=== PATIENT | male | born 1955 | race American Indian/Alaskan Native ===

== ENCOUNTER 2016-04-23 09:20 | Day surgery (SDC) | payer MEDICAID ==
[2016-04-23] MEDS ORDERED: NACL 0.9% 1000 ML 1,000 ML IV SCH (11:00)
[2016-04-23] MEDS ORDERED: DIPRIVAN 10 MG/ML IV ONE ×2 (11:14)
[2016-04-23] MEDS ORDERED: XYLOCAINE MPF 2% ONE (11:22)
--- NOTE | 2016-04-23 11:25 | Operative Report ---
Operative Report Operative Report: Operative Report: Date of procedure: 04/23/2016 Procedure: Esophagogastroduodenoscopy with multiple mucosal biopsies Attending physician: Jaspreet Boggs MD Internet Site Designer: Jaspreet Boggs MD Indication: Patient is a 61-year-old male who presented with a history of epigastric pain indigestion and chest pain. An upper endoscopy is done to assess patient regarding cause of her symptoms so that treatment may be directed based on the findings. Consent: Informed consent was obtained after advising the patient and family regarding nature of this procedure, its indications, potential benefits as well as possible complications including but not limited to bleeding perforation and adverse reaction to medication, infection as well as other cardiopulmonary complications. An informed written and verbal consent was then obtained after due opportunity was provided for questions and answers. Monitoring: Patient was monitored continuously with pulse oximetry and electrocardiographic recordings as well as blood pressure recordings. Vital signs remained stable throughout this procedure with no untoward events. Preoperative assessment: Patient was assessed immediately prior to this procedure for capacity to tolerate monitored anesthesia care and moderate sedation as well as general anesthesia. Patient's ASA classification is 2, Mallampati class is 2, Hyomental distance is 3. Instrument: [employer] video endoscope Medications: Propofol given intravenously in divided doses. For details please refer to anesthesia records. Description of procedure: Patient was placed in the left lateral decubitus position after achieving sedation, the endoscope was introduced into the esophagus under direct vision. It was then advanced beyond the esophagus into the stomach and then beyond the stomach into the duodenum and to the second portion of the duodenum. It was subsequently withdrawn with careful inspection of all mucosal surfaces with the following findings. Findings: Patient had mild erosive esophagitis involving the distal esophagus with linear erosions surrounding erythema and mucosal edema.. There was a 2-3 cm sliding hiatal hernia seen on entry into the stomach. There was erythema and erosions in the gastric antrum. Pyloric channel was patulous. Biopsies of the antrum were obtained for histopathology. The duodenum was normal to second portion except for mild diverticulosis involving the second portion . Impression: Erosive esophagitis mild severity linear erosions in the distal esophagus Hiatal hernia. Mucosal changes suggestive of gastritis. Mild duodenal diverticulosis Plan: Maintain antireflux measures. Continue treatment with proton pump inhibitors. Follow pathology report. Direct additional treatment based on the pathology report.
--- NOTE | 2016-04-23 11:37 | Discharge Summary ---
Short Stay Discharge Plan Activity: advance as tolerated Weight Bearing Status: Weight Bear as Tolerated Diet: regular Follow up with: PRIMARY CARE, [Primary Care Provider] - 7 Days
--- NOTE | 2016-04-23 13:09 | Anesthesia Consultation ---
Anesthesia Consult and Med Hx Date of service: 04/23/16 - Airway Anesthetic Teeth Evaluation: Edentulous ROM Head & Neck: Adequate Mental/Hyoid Distance: Adequate Mallampati Class: Class II Intubation Access Assessment: Probably Good - Pulmonary Exam CTA: Yes - Cardiac Exam Cardiac Exam: RRR - Pre-Operative Health Status ASA Pre-Surgery Classification: ASA3 Proposed Anesthetic Plan: MAC - Pulmonary Hx Smoking: Yes COPD: Yes Hx Sleep Apnea: Yes - Cardiovascular System Hx Hypertension: Yes - Central Nervous System Hx Psychiatric Problems: Yes - Gastrointestinal Hx Ulcer: Yes (h/o bleeding ulcer) - Endocrine Hx Hyperthyroidism: No - Hematic Hx Anemia: No - Other Systems Hx Cancer: No
--- NOTE | 2016-04-23 13:10 | Anesthesia Day of Surgery ---
Anesthesia Day of Surgery - Day of Surgery Patient Examined: Yes Patient H&P Reviewed: Yes Patient is NPO: Yes
--- NOTE | 2016-04-23 13:10 | Post Anesthesia Evaluation ---
- Post Anesthesia Evaluation Patient Participated: Yes Airway Patent: Yes Stable Respiratory Function: Yes Nausea/Vomiting: No Temp > 96.8F: Yes Pain Manageable: Yes Adequeate Hydration: Yes Anesthesia Complications: No Block Receding Appropriately: Not Applicable Patient on Ventilator: No
[2016-04-23 15:50] VITALS: BP 123/75
== END 2016-04-23 23:59 | disposition home or self-care (01) ==
LOC: GIO 09:20
PROVIDERS: ATTEND Internal Medicine Gastroenterology
DX: K21.0 Gastro-esophageal reflux disease with esophagitis (principal); K22.10 Ulcer of esophagus without bleeding; K44.9 Diaphragmatic hernia without obstruction or gangrene; K57.10 Diverticulosis of small intestine without perforation or abscess without bleeding; F41.9 Anxiety disorder, unspecified; F32.9 Major depressive disorder, single episode, unspecified; J44.9 Chronic obstructive pulmonary disease, unspecified; I10 Essential (primary) hypertension; Z87.891 Personal history of nicotine dependence
CPT/HCPCS: 43239; 88305; 88342; J2704; J7030

== ENCOUNTER 2016-06-04 09:00 | Day surgery (SDC) | payer MEDICAID ==
[~2016-06-04 09:00] MED LIST: ROBINUL ONE; XYLOCAINE MPF 2% ONE
[2016-06-04] MEDS ORDERED: NACL 0.9% 1000 ML 1,000 ML IV SCH (11:00)
[2016-06-04] MEDS ORDERED: DIPRIVAN 10 MG/ML IV ONE ×3 (11:31→14:33)
--- NOTE | 2016-06-04 11:33 | Anesthesia Consultation ---
Anesthesia Consult and Med Hx Date of service: 06/04/16 - Airway Anesthetic Teeth Evaluation: Dentures ROM Head & Neck: Adequate Mental/Hyoid Distance: Adequate Mallampati Class: Class II - Pulmonary Exam CTA: Yes - Cardiac Exam Cardiac Exam: RRR - Pre-Operative Health Status ASA Pre-Surgery Classification: ASA3 Proposed Anesthetic Plan: MAC - Pulmonary Hx Smoking: Yes (quit 3 years ago) COPD: Yes Hx Sleep Apnea: Yes - Cardiovascular System Hx Hypertension: Yes - Central Nervous System Hx Psychiatric Problems: Yes - Gastrointestinal Hx Ulcer: Yes (h/o bleeding ulcer) Hx Gastroesophageal Reflux Disease: Yes - Endocrine Hx Hyperthyroidism: No - Hematic Hx Anemia: No - Other Systems Hx Alcohol Use: No (quit 28 years ago) Hx Substance Use: No Hx Cancer: No Hx Obesity: No
--- NOTE | 2016-06-04 11:33 | Anesthesia Day of Surgery ---
Anesthesia Day of Surgery - Day of Surgery Patient Examined: Yes Patient H&P Reviewed: Yes Patient is NPO: Yes
[2016-06-04] MEDS ORDERED: WATER FOR IRRIG STERILE IR ONE (13:28)
[2016-06-04] MEDS ORDERED: ROBINUL ONE (13:34)
--- NOTE | 2016-06-04 14:34 | Operative Report ---
Operative Report Operative Report: Date of procedure: 06/04/2016 Procedure: Colonoscopy with multiple snare polypectomies, submucosal injection and hot biopsy polypectomy. Attending physician: Jaspreet Boggs MD Corporate Controller: Jaspreet Boggs MD Indication: Colorectal cancer screening Consent: Informed consent was obtained after advising the patient and family regarding nature of this procedure, its indications, potential benefits as well as possible complications including but not limited to bleeding perforation and adverse reaction to medication, infection as well as other cardiopulmonary complications. An informed written and verbal consent was then obtained after due opportunity was provided for questions and answers. Monitoring: Patient was monitored continuously with pulse oximetry and electrocardiographic recordings as well as blood pressure recordings. Vital signs remained stable throughout this procedure with no untoward events. Preoperative assessment: Patient was assessed immediately prior to this procedure for capacity to tolerate monitored anesthesia care and moderate sedation as well as general anesthesia. Patient's ASA classification is 2, Mallampati class is 2, Hyomental distance is 3. Instrument: [employer] videocolonoscope Medications: Propofol given intravenously in divided doses for details please potential records. Description of procedure: Patient was placed in the left lateral decubitus position after achieving sedation, a digital rectal examination was performed following which the colonoscope was introduced into the anal verge and advanced to the cecum which was identified by the cecal valve, the appendiceal orifice, as well as by the cecal strap and direct transillumination. The colonoscope was subsequently withdrawn with careful inspection of all mucosal surfaces. Patient tolerated this procedure well and was subsequently taken to the recovery room. The following findings were noted. Findings: Patient had a few scattered diverticula in the sigmoid and descending colon. The cecum had some densely inherent stool was irrigated with no additional findings. In the ascending colon, patient had a broad-based sessile polyp. It measured approximately 1-1.5 cm. It was injected with saline to elevate it and removed by snare electrocautery and retrieved. The transverse colon was normal. In the descending colon patient a broad-based sessile polyp measuring approximately 8 mm to 1 cm. It was injected with saline to elevate it and removed by snare electrocautery and retrieved. Sigmoid colon was normal. In the rectum, patient had a flat polyp measuring approximately 8 mm. It was removed by hot biopsy polypectomy and retrieved. On the retroflex view at the anal verge, patient had internal hemorrhoids. Impression: Mild diverticulosis. Ascending colon polyp status post submucosal injection with saline and snare polypectomy. Descending colon polyp status post submucosal injection and snare polypectomy. Rectal polyp status post hot biopsy polypectomy Retained stool. Internal hemorrhoids. Plan: Follow pathology report High-fiber diet Consider repeat colonoscopy in 5 years.
--- NOTE | 2016-06-04 14:35 | Discharge Summary ---
Short Stay Discharge Plan Activity: advance as tolerated Weight Bearing Status: Weight Bear as Tolerated Diet: regular Follow up with: PRIMARY CARE, [Primary Care Provider] - 7 Days
[2016-06-04 14:47] VITALS: BP 119/74
== END 2016-06-04 09:01 | disposition home or self-care (01) ==
LOC: GIO 09:00
PROVIDERS: ATTEND Internal Medicine Gastroenterology
DX: Z12.11 Encounter for screening for malignant neoplasm of colon (principal); K57.30 Diverticulosis of large intestine without perforation or abscess without bleeding; K63.5 Polyp of colon; K64.8 Other hemorrhoids; F41.9 Anxiety disorder, unspecified; J44.9 Chronic obstructive pulmonary disease, unspecified; F32.9 Major depressive disorder, single episode, unspecified; I10 Essential (primary) hypertension; F10.21 Alcohol dependence, in remission; K21.9 Gastro-esophageal reflux disease without esophagitis; Z87.891 Personal history of nicotine dependence; Z80.42 Family history of malignant neoplasm of prostate; Z80.0 Family history of malignant neoplasm of digestive organs
CPT/HCPCS: 45381; 45384; 45385; 88305; J2704; J7030